=== PATIENT | female | born 1935 ===

== ENCOUNTER → 2019-01-12 | Outpatient (CLI) | payer MEDICARE, OTHER ==
[2019-01-12 20:43] LABS: ANION GAP 13.6; CHLORIDE,CL 101 mmol/L (101-111); SODIUM,NA 134 mmol/L (135-145)
== END ==
LOC: DL.CLIN 15:12
PROVIDERS: ATTEND Nurse Practitioner
DX: I10 Essential (primary) hypertension (principal); E03.9 Hypothyroidism, unspecified
CPT/HCPCS: 80053; 80061; 84443; 85025; 99213

== ENCOUNTER 2020-05-28 08:57 | Day surgery (SDC) | payer MEDICARE, OTHER ==
[~2020-05-28 08:57] MED LIST: Lidocaine 2% with EPINEPHrine 1:200,000 20 ML SDV ONE; Sodium Chloride 0.9% 10 ML Syringe FLUSH PRN
[2020-05-28] MEDS ORDERED: Dexamethasone 4 MG/ML SDV IV ONE (08:58)
[2020-05-28] MEDS ORDERED: Sodium Chloride 0.9% 10 ML Syringe IV ONE (08:58)
[2020-05-28] MEDS ORDERED: Midazolam 1 MG/ML 2 ML SDV IV ONE (08:58)
[2020-05-28] MEDS ORDERED: Povidone-Iodine 5% Sterile Ophth Soln 30 ML Bottle EYELF ONE ×2 (09:00→10:05)
[2020-05-28] MEDS ORDERED: Phenylephrine 10% Ophth Soln 5 ML Bot EYELF PRN (09:00)
[2020-05-28] MEDS ORDERED: Timolol Maleate 0.5% Ophth Soln 5 ML Bottle EYELF ONE (09:00)
[2020-05-28] MEDS ORDERED: Proparacaine 0.5% Ophth Soln 15 ML Bottle EYELF ONE (09:00)
[2020-05-28] MEDS ORDERED: Phenylephrine 10% Ophth Soln 5 ML Bot EYELF ONE (09:00)
[2020-05-28] MEDS ORDERED: Acetaminophen 325 MG Tab PO PRN (09:00)
[2020-05-28] MEDS ORDERED: Cataract Ophth Solution EYELF ONE (09:00)
[2020-05-28] MEDS ORDERED: Ondansetron 4 MG/2 ML SDV IVPUSH PRN (09:00)
[2020-05-28] MEDS ORDERED: Moxifloxacin 0.5% Ophth Soln 3 ML Bottle EYELF ONE (09:00)
[2020-05-28] MEDS ORDERED: Tropicamide 1% Ophth Soln 15 ML Bottle EYELF ONE (09:00)
[2020-05-28] MEDS ORDERED: Lidocaine 1% with EPINEPHrine 1:100,000 30 ML MDV ONE (10:04)
[2020-05-28] MEDS ORDERED: Tetracaine HCl/PF 0.5% 4 ML Bottle EYELF ONE (10:04)
[2020-05-28] MEDS ORDERED: Tetracaine HCl/PF 0.5% 4 ML Bottle EYERT ONE (10:04)
[2020-05-28] MEDS ORDERED: Lidocaine 2% with EPINEPHrine 1:200,000 20 ML SDV ONE ×2 (10:05)
[2020-05-28] MEDS ORDERED: Apraclonidine 0.5% Ophth Soln 5 ML Bot EYELF ONE (10:05)
[2020-05-28] MEDS ORDERED: Diclofenac Sodium 0.1% Ophth Soln 5 ML Bottle EYELF ONE (10:06)
[2020-05-28] MEDS ORDERED: Dexamethasone/Neomycin/Polymyxin B Ophth Oint 3.5 GM Tube EYELF ONE (10:06)
[2020-05-28] MEDS ORDERED: Chondroitin Sulfate/Hyaluronate Sodium Ophth Inj 0.75 ML Syringe EYELF ONE (10:07)
[2020-05-28] MEDS ORDERED: Vancomycin 500 MG SDV EYELF ONE (10:07)
[2020-05-28] MEDS ORDERED: Balanced Salt Solution Ophth Irrig 500 ML Bottle IOCULAR ONE (10:07)
[2020-05-28] MEDS ORDERED: Erythromycin Base 0.5% Ophth Oint 1 GM Tube EYERT ONE (10:08)
[2020-05-28] MEDS ORDERED: Povidone-Iodine 5% Sterile Ophth Soln 30 ML Bottle EYERT ONE (10:15)
--- NOTE | 2020-05-28 12:04 | OR ---
DATE: 05/28/2020 PREOPERATIVE DIAGNOSIS: Visually significant mixed cataract, left eye. POSTOPERATIVE DIAGNOSIS: Visually significant mixed cataract, left eye. PROCEDURES: 1. Extracapsular cataract extraction with intraocular lens implant, left eye. 2. Lesion excision, right lower lid. ANESTHESIA: Topical/local MAC. COMPLICATIONS: None. INDICATION: The patient was seen in the clinic. She has complained of a slow progressive change in vision. Examination revealed visually significant mixed cataract. Examination also revealed an atypical lesion of the right lower lid with hyperpigmentation and irregular contour. I explained options, offered cataract surgery, and I explained risks, including, but not limited to, infection, retinal detachment, loss of vision, need for additional surgery, and risks associated with anesthesia. We discussed the lesion on the right lower lid. This lesion has been present for approximately 3 years and Ms. Menon notes that it is changing or increasing in size and potentially in color. I recommended excision of the lesion on the right lower lid at the same time as cataract surgery. She voiced an understanding with respect to risks including the potential for visual loss. We discussed implant options. She requested a monofocal implant. She has moderate to severe pre-existing astigmatism and understands that her visual potential will be limited without glasses. OPERATIVE DESCRIPTION: After informed consent was obtained and the risks, benefits, and alternatives were explained, the patient was brought to the operative suite and topical anesthesia was administered. The patient was then prepped and draped in the sterile fashion and attention was placed on the left eye. A sterile lid speculum was placed into the left eye to allow operative exposure. A full-thickness paracentesis was made in the temporal portion of the operative eye. Preservative-free lidocaine 0.1 mL was injected into the anterior chamber followed by viscoelastic. A full-thickness corneal incision was then made into the anterior chamber. A bent needle cystotome was used to create a small patt in the anterior capsule. The capsulorrhexis forceps was then used to create a 360-degree curvilinear capsulorrhexis. The nucleus was then removed using a phacoemulsification handpiece and the remaining cortical material was then removed with irrigation and aspiration handpiece. Following removal of the cortical material, the capsular bag was then inspected and noted to be free of any holes or tears. Viscoelastic was then injected into the capsular bag and the intraocular lens was inserted into the capsular bag. The viscoelastic material was then removed from both the anterior and posterior chambers and from behind the IOL. The lens and capsular bag were then reinspected. The IOL was well centered and the capsular bag intact. The wound and paracentesis sites were inspected and hydrated with balanced saline solution. Both were found to be self- sealing. The intraocular pressure was assessed digitally and found to be within normal range. A good red reflex was noted at the completion of the procedure. No complications occurred during the operation. At the completion of the procedure, Maxitrol, Voltaren, and Iopidine drops were placed into the operative eye. A sterile eye shield was placed over the operative eye and the patient was transported to the postoperative recovery area having tolerated the procedure well. Postoperative instructions were given along with a postoperative appointment. The patient was advised to call with any questions or concerns. After the cataract procedure was performed on the left, the drape was removed. Lesion on the right lower lid was prepped and draped in a sterile fashion. Lesion was delineated using a felt-tip marking pen, leaving an approximately 1.5 mm circumferential margin. Lesion was then infiltrated with 2% lidocaine with epinephrine. An edge of the lesion site was then elevated and excised using a Morenita scissors in semi-elliptical excision. Entire lesion was excised with no residual tissue remaining in an approximately 1.5 mm margin. Total excision site was 6.5 mm x 5.5 mm. Hemostasis was obtained with digital pressure. Antibiotic ointment was placed over the lesion excision site. The patient was then transported to the postoperative recovery area having tolerated the procedure well. [facility] /[id number]
== END 2020-05-28 11:22 | disposition home or self-care (01) ==
LOC: DL.SDS 08:57
PROVIDERS: ATTEND Ophthalmology
DX: H25.812 Combined forms of age-related cataract, left eye (principal); L82.1 Other seborrheic keratosis; L57.0 Actinic keratosis; I10 Essential (primary) hypertension; E03.9 Hypothyroidism, unspecified; Z79.890 Hormone replacement therapy; Z79.899 Other long term (current) drug therapy; Z88.2 Allergy status to sulfonamides
CPT/HCPCS: 00142; 88305; A9270-GY; J1100; J2250; J3370; V2632

== ENCOUNTER 2020-06-04 07:27 | Day surgery (SDC) | payer MEDICARE, OTHER ==
[2020-06-04] MEDS ORDERED: Sodium Chloride 0.9% 10 ML Syringe IV ONE (07:28)
[2020-06-04] MEDS ORDERED: Midazolam 1 MG/ML 2 ML SDV IV ONE (07:28)
[2020-06-04] MEDS ORDERED: Dexamethasone 4 MG/ML SDV IV ONE (07:28)
[2020-06-04] MEDS ORDERED: Proparacaine 0.5% Ophth Soln 15 ML Bottle EYERT ONE (07:30)
[2020-06-04] MEDS ORDERED: Tropicamide 1% Ophth Soln 15 ML Bottle EYERT ONE (07:30)
[2020-06-04] MEDS ORDERED: Povidone-Iodine 5% Sterile Ophth Soln 30 ML Bottle EYERT ONE ×2 (07:30→08:43)
[2020-06-04] MEDS ORDERED: Timolol Maleate 0.5% Ophth Soln 5 ML Bottle EYERT ONE (07:30)
[2020-06-04] MEDS ORDERED: Acetaminophen 325 MG Tab PO PRN (07:30)
[2020-06-04] MEDS ORDERED: Moxifloxacin 0.5% Ophth Soln 3 ML Bottle EYERT ONE (07:30)
[2020-06-04] MEDS ORDERED: Sodium Chloride 0.9% 10 ML Syringe FLUSH PRN (07:30)
[2020-06-04] MEDS ORDERED: Ondansetron 4 MG/2 ML SDV IVPUSH PRN (07:30)
[2020-06-04] MEDS ORDERED: Phenylephrine 10% Ophth Soln 5 ML Bot EYERT PRN (07:30)
[2020-06-04] MEDS ORDERED: Phenylephrine 10% Ophth Soln 5 ML Bot EYERT ONE ×2 (07:30→08:43)
[2020-06-04] MEDS ORDERED: Cataract Ophth Solution EYERT ONE (07:30)
[2020-06-04] MEDS ORDERED: Lidocaine 1% 30 ML SDV ONE (08:41)
[2020-06-04] MEDS ORDERED: Tetracaine HCl/PF 0.5% 4 ML Bottle EYERT ONE (08:42)
[2020-06-04] MEDS ORDERED: Apraclonidine 0.5% Ophth Soln 5 ML Bot EYERT ONE (08:43)
[2020-06-04] MEDS ORDERED: Diclofenac Sodium 0.1% Ophth Soln 5 ML Bottle EYERT ONE (08:43)
[2020-06-04] MEDS ORDERED: Vancomycin 500 MG SDV EYERT ONE (08:44)
[2020-06-04] MEDS ORDERED: Balanced Salt Solution Ophth Irrig 500 ML Bottle IOCULAR ONE (08:44)
[2020-06-04] MEDS ORDERED: Chondroitin Sulfate/Hyaluronate Sodium Ophth Inj 0.75 ML Syringe EYERT ONE (08:44)
[2020-06-04] MEDS ORDERED: Dexamethasone 4 MG/ML SDV IOCULAR ONE (08:47)
--- NOTE | 2020-06-05 08:47 | OR ---
DATE: 06/04/2020 PREOPERATIVE DIAGNOSIS: Visually significant mixed cataract, right eye. POSTOPERATIVE DIAGNOSIS: Visually significant mixed cataract, right eye. PROCEDURE: Extracapsular cataract extraction with intraocular lens implant, right eye. ANESTHESIA: Topical/local MAC. COMPLICATIONS: None. INDICATION: Ms. Menon was seen in the clinic with complaints of blurred vision. Examination revealed visually significant mixed cataract. I explained options, offered cataract surgery, and I explained risks, including, but not limited to, infection, retinal detachment, loss of vision, need for additional surgery, and risks associated with anesthesia. We discussed implant options. She has significant preexisting corneal astigmatism and she has requested a monofocal implant. She understands that her vision will be limited without glasses following surgery. OPERATIVE DESCRIPTION: After informed consent was obtained and the risks, benefits, and alternatives were explained, the patient was brought to the operative suite and topical anesthesia was administered. The patient was then prepped and draped in the sterile fashion and attention was placed on the right eye. A sterile lid speculum was placed into the right eye to allow operative exposure. A full-thickness paracentesis was made in the temporal portion of the operative eye. Preservative-free lidocaine 0.1 mL was injected into the anterior chamber followed by viscoelastic. A full-thickness corneal incision was then made into the anterior chamber. A bent needle cystotome was used to create a small patt in the anterior capsule. The capsulorrhexis forceps was then used to create a 360-degree curvilinear capsulorrhexis. The nucleus was then removed using a phacoemulsification handpiece and the remaining cortical material was then removed with irrigation and aspiration handpiece. Following removal of the cortical material, the capsular bag was then inspected and noted to be free of any holes or tears. Viscoelastic was then injected into the capsular bag and the intraocular lens was inserted into the capsular bag. The viscoelastic material was then removed from both the anterior and posterior chambers and from behind the IOL. The lens and capsular bag were then reinspected. The IOL was well centered and the capsular bag intact. The wound and paracentesis sites were inspected and hydrated with balanced saline solution. Both were found to be self- sealing. The intraocular pressure was assessed digitally and found to be within normal range. A good red reflex was noted at the completion of the procedure. No complications occurred during the operation. At the completion of the procedure, Maxitrol, Voltaren, and Iopidine drops were placed into the operative eye. A sterile eye shield was placed over the operative eye and the patient was transported to the postoperative recovery area having tolerated the procedure well. Postoperative instructions were given along with a postoperative appointment. The patient was advised to call with any questions or concerns. [facility] /[id number]
== END 2020-06-04 09:57 | disposition home or self-care (01) ==
LOC: DL.SDS 07:27
PROVIDERS: ATTEND Ophthalmology
DX: H25.811 Combined forms of age-related cataract, right eye (principal); I10 Essential (primary) hypertension; E03.9 Hypothyroidism, unspecified; Z79.899 Other long term (current) drug therapy; Z79.890 Hormone replacement therapy; Z79.82 Long term (current) use of aspirin
CPT/HCPCS: J1100; J2001; J2250; J3370; V2632

== ENCOUNTER 2022-02-01 14:20 | Emergency (ER) | payer MEDICARE, OTHER ==
[2022-02-01 14:36] LABS: ANION GAP 16.3 mEq/L (7-13); CHLORIDE,CL 96 mmol/L (98-107); SODIUM,NA 133 mmol/L (136-145)
[2022-02-01] MEDS ORDERED: Morphine 2 MG/ML SYRINGE IVPUSH ONE ×2 (16:21→17:19)
[2022-02-01] MEDS ORDERED: Ondansetron 4 MG/2 ML SDV IVPUSH ONE (16:21)
== END 2022-02-01 17:39 ==
LOC: DL.ED 14:20
DX: S72.002A Fracture of unspecified part of neck of left femur, initial encounter for closed fracture (principal); E03.9 Hypothyroidism, unspecified; Z79.82 Long term (current) use of aspirin; Z79.899 Other long term (current) drug therapy; W18.30XA Fall on same level, unspecified, initial encounter
CPT/HCPCS: 36415; 80053; 83605; 84484; 85025; 85610; 86140; 93005; 93010; 96374; 96375; 96376; 99284; 99285-25; J2270; J2405

== ENCOUNTER 2022-02-05 09:34 | Inpatient (IN) | payer MEDICARE, OTHER ==
[2022-02-05] MEDS ORDERED: Ondansetron 4 MG/2 ML SDV IVPUSH PRN (15:06)
[2022-02-05] MEDS ORDERED: Docusate Sodium 100 MG Cap PO PRN (15:06)
[2022-02-05] MEDS ORDERED: Acetaminophen 325 MG Tab PO PRN (15:06)
[2022-02-05] MEDS ORDERED: Bisacodyl 5 MG Tab PO PRN (15:06)
[2022-02-05] MEDS ORDERED: Polyethylene Glycol 3350 Powder 17 GM Packet PO PRN (15:06)
[2022-02-05] MEDS ORDERED: Acetaminophen/oxyCODONE 325-5 MG Tab PO PRN (15:06)
[2022-02-05] MEDS ORDERED: Albuterol/Ipratropium 3.0-0.5 MG/3 ML Neb Soln NEB PRN (15:06)
[2022-02-05] MEDS ORDERED: Non-Formulary Medication 1 Each (Naproxen Sodium [Aleve] 220 MG Capsule) PO PRN (15:10)
[2022-02-05] MEDS: Acetaminophen 325 MG Tab PO PRN (20:16)
[2022-02-06] MEDS: Levothyroxine 88 MCG Tab PO SCH (05:26)
[2022-02-06] MEDS: Acetaminophen 325 MG Tab PO PRN ×2 (05:26→18:30)
[2022-02-06 06:46] LABS: ANION GAP 12.2 mEq/L (7-13); CHLORIDE,CL 100 mmol/L (98-107); SODIUM,NA 136 mmol/L (136-145)
[2022-02-06] MEDS: Lisinopril 5 MG Tab PO SCH (08:37)
[2022-02-06] MEDS: Aspirin 81 MG Tab.EC PO SCH (08:37)
[2022-02-06] MEDS: Enoxaparin 40 MG/0.4 ML Syringe SUBCUT SCH (08:37)
[2022-02-06] MEDS ORDERED: Non-Formulary Medication 1 Each (Omega-3 Fatty Acids/Fish Oil [Fish Oil 1,000 Mg Capsule] PO SCH (09:00)
[2022-02-06] MEDS: Naproxen 250 MG Tab PO PRN (10:08)
[2022-02-06] MEDS: traMADol 50 MG Tab PO PRN (10:09)
[2022-02-07] MEDS: Levothyroxine 88 MCG Tab PO SCH (06:13)
[2022-02-07] MEDS: Naproxen 250 MG Tab PO PRN ×2 (06:13→11:29)
[2022-02-07] MEDS: traMADol 50 MG Tab PO PRN (09:01)
[2022-02-07] MEDS: Aspirin 81 MG Tab.EC PO SCH (09:02)
[2022-02-07] MEDS: Lisinopril 5 MG Tab PO SCH (09:02)
[2022-02-07] MEDS: Enoxaparin 40 MG/0.4 ML Syringe SUBCUT SCH (09:06)
[2022-02-07] MEDS: Acetaminophen 325 MG Tab PO PRN (16:36)
[2022-02-08] MEDS: traMADol 50 MG Tab PO PRN ×2 (03:49→12:33)
[2022-02-08] MEDS: Levothyroxine 88 MCG Tab PO SCH (05:47)
[2022-02-08] MEDS: Lisinopril 5 MG Tab PO SCH (08:11)
[2022-02-08] MEDS: Aspirin 81 MG Tab.EC PO SCH (08:11)
[2022-02-08] MEDS: Enoxaparin 40 MG/0.4 ML Syringe SUBCUT SCH (08:12)
[2022-02-08] MEDS: Naproxen 250 MG Tab PO PRN (21:38)
[2022-02-09] MEDS: Levothyroxine 88 MCG Tab PO SCH (06:40)
[2022-02-09] MEDS: Lisinopril 5 MG Tab PO SCH (08:54)
[2022-02-09] MEDS: Enoxaparin 40 MG/0.4 ML Syringe SUBCUT SCH (08:54)
[2022-02-09] MEDS: Aspirin 81 MG Tab.EC PO SCH (08:54)
[2022-02-09] MEDS: Acetaminophen 325 MG Tab PO PRN (09:19)
[2022-02-09] MEDS: traMADol 50 MG Tab PO PRN (09:19)
[2022-02-10] MEDS: traMADol 50 MG Tab PO PRN (02:42)
[2022-02-10] MEDS: Levothyroxine 88 MCG Tab PO SCH (06:25)
[2022-02-10] MEDS: Aspirin 81 MG Tab.EC PO SCH (08:35)
[2022-02-10] MEDS: Lisinopril 5 MG Tab PO SCH (08:36)
[2022-02-10] MEDS: Enoxaparin 40 MG/0.4 ML Syringe SUBCUT SCH (08:36)
[2022-02-10] MEDS: Acetaminophen 325 MG Tab PO PRN (15:51)
[2022-02-10] MEDS: Naproxen 250 MG Tab PO PRN (22:15)
[2022-02-11] MEDS: Levothyroxine 88 MCG Tab PO SCH (06:24)
[2022-02-11] MEDS: Lisinopril 5 MG Tab PO SCH (08:16)
[2022-02-11] MEDS: Enoxaparin 40 MG/0.4 ML Syringe SUBCUT SCH (08:16)
[2022-02-11] MEDS: Aspirin 81 MG Tab.EC PO SCH (08:16)
[2022-02-11] MEDS: Naproxen 250 MG Tab PO PRN (15:03)
[2022-02-12] MEDS: Levothyroxine 88 MCG Tab PO SCH (05:34)
[2022-02-12] MEDS: Lisinopril 5 MG Tab PO SCH (08:34)
[2022-02-12] MEDS: Aspirin 81 MG Tab.EC PO SCH (08:34)
[2022-02-12] MEDS: Enoxaparin 40 MG/0.4 ML Syringe SUBCUT SCH (08:34)
[2022-02-12] MEDS: Naproxen 250 MG Tab PO PRN ×2 (11:24→21:33)
[2022-02-13] MEDS: Levothyroxine 88 MCG Tab PO SCH (06:04)
[2022-02-13] MEDS ORDERED: Ergocalciferol (Vitamin D2) 1.25 MG Cap PO SCH (09:00)
[2022-02-13] MEDS: Enoxaparin 40 MG/0.4 ML Syringe SUBCUT SCH (09:31)
[2022-02-13] MEDS: Lisinopril 5 MG Tab PO SCH (09:31)
[2022-02-13] MEDS: Aspirin 81 MG Tab.EC PO SCH (09:31)
[2022-02-13] MEDS: Acetaminophen 325 MG Tab PO PRN (15:13)
[2022-02-13] MEDS: Naproxen 250 MG Tab PO PRN (22:27)
[2022-02-14] MEDS: Levothyroxine 88 MCG Tab PO SCH (06:17)
[2022-02-14] MEDS: Aspirin 81 MG Tab.EC PO SCH (08:06)
[2022-02-14] MEDS: Lisinopril 5 MG Tab PO SCH (08:06)
[2022-02-14] MEDS: Enoxaparin 40 MG/0.4 ML Syringe SUBCUT SCH (08:07)
[2022-02-14] MEDS: traMADol 50 MG Tab PO PRN (09:31)
[2022-02-14] MEDS: Naproxen 250 MG Tab PO PRN (20:32)
[2022-02-15] MEDS: Levothyroxine 88 MCG Tab PO SCH (06:29)
[2022-02-15] MEDS: traMADol 50 MG Tab PO PRN ×2 (06:31→15:56)
[2022-02-15] MEDS: Lisinopril 5 MG Tab PO SCH (08:34)
[2022-02-15] MEDS: Aspirin 81 MG Tab.EC PO SCH (08:34)
[2022-02-15] MEDS: Enoxaparin 40 MG/0.4 ML Syringe SUBCUT SCH (08:34)
[2022-02-16] MEDS: Levothyroxine 88 MCG Tab PO SCH (06:23)
[2022-02-16] MEDS: Lisinopril 5 MG Tab PO SCH (08:03)
[2022-02-16] MEDS: Aspirin 81 MG Tab.EC PO SCH (08:03)
[2022-02-16] MEDS: Enoxaparin 40 MG/0.4 ML Syringe SUBCUT SCH (08:06)
[2022-02-16] MEDS: Naproxen 250 MG Tab PO PRN (11:39)
[2022-02-17] MEDS: Naproxen 250 MG Tab PO PRN (02:58)
[2022-02-17] MEDS: Levothyroxine 88 MCG Tab PO SCH (06:08)
[2022-02-17] MEDS: Lisinopril 5 MG Tab PO SCH (08:24)
[2022-02-17] MEDS: Aspirin 81 MG Tab.EC PO SCH (08:25)
== END 2022-02-17 11:55 | disposition home or self-care (01) | DRG 561 ==
LOC: DL.MS 14:37
PROVIDERS: ADMIT Internal Medicine; ATTEND Internal Medicine
DX: Z47.89 Encounter for other orthopedic aftercare (principal); S72.002D Fracture of unspecified part of neck of left femur, subsequent encounter for closed fracture with routine healing; M19.90 Unspecified osteoarthritis, unspecified site; R53.1 Weakness; I10 Essential (primary) hypertension; E03.9 Hypothyroidism, unspecified; E55.9 Vitamin D deficiency, unspecified; H54.7 Unspecified visual loss; R32 Unspecified urinary incontinence; Z85.828 Personal history of other malignant neoplasm of skin; Z79.82 Long term (current) use of aspirin; Z79.890 Hormone replacement therapy; Z79.899 Other long term (current) drug therapy; Z90.89 Acquired absence of other organs; Z98.49 Cataract extraction status, unspecified eye; Z90.49 Acquired absence of other specified parts of digestive tract; Z90.710 Acquired absence of both cervix and uterus; W19.XXXD Unspecified fall, subsequent encounter
CPT/HCPCS: 36415; 80048; 82306; 83735; 85025; 97110-GP; 97116-GP; 97161-GP; 97165-GO; 97530-GO; 97530-GP; 97535-GO; A9270-GY; J1650